=== PATIENT | female | born 2000 | race Two or more races ===

== ENCOUNTER 2022-05-30 08:49 | Emergency (ER) | payer BC ==
[~2022-05-30] VITALS: Ht 177.8 cm; Wt 59.0 kg
--- NOTE | 2022-05-30 09:10 | NUR ---
BIB FRIEND w/ C/O ABDOMINAL PAIN AND VOMITING STARTED AT 0400 TODAY, PT RATES PAIN AT P/S 04/26. PT A/O X4, AMBULATORY. TO ER BED 9.
--- NOTE | 2022-05-30 09:20 | NUR ---
URINE COLLECTED AND SENT
--- NOTE | 2022-05-30 09:26 | NUR ---
PT TAKEN TO CT VIA [facility]
[2022-05-30] MEDS ORDERED: IV NS 0.9% 500 ML BAG IV ONE (09:30)
[2022-05-30] MEDS ORDERED: ONDANSETRON HCL/PF 4 MG/2 ML VIAL ONE (09:42)
[2022-05-30 09:53] LABS: BASOPHILS % (AUTO) 0.1 % (0.0-2.0); EOSINOPHILS % (AUTO) 0.3 % (0.0-6.0); HEMATOCRIT 40 % (33-45); HEMOGLOBIN 13.9 g/dL (11.5-14.8); LYMPHOCYTES # (AUTO) 1.1 K/uL (0.8-4.8); LYMPHOCYTES % (AUTO) 6.7 % (20.0-44.0); MEAN CORPUSCULAR HGB CONC 35 g/dl (31.0-36.0); MEAN CORPUSCULAR VOLUME 88 fL (82-100); MONOCYTES % (AUTO) 6.1 % (2.0-12.0); NEUTROPHILS # (AUTO) 13.7 K/uL (1.8-8.9); NEUTROPHILS % (AUTO) 86.8 % (43.0-81.0); PLATELET COUNT (AUTO) 307 K/uL (150-450); RED BLOOD CELL COUNT(AUTO) 4.59 MIL/uL (4.0-5.2); WHITE BLOOD COUNT (AUTO) 15.7 K/uL (4.3-11.0)
[2022-05-30] MEDS ORDERED: ONDANSETRON HCL/PF 4 MG/2 ML VIAL IV ONE (10:00)
[2022-05-30 10:19] LABS: CREATININE 0.8 mg/dL (0.6-1.3); POTASSIUM 3.4 mmol/L (3.5-5.1)
[2022-05-30 10:27] LABS: ALBUMIN 4.2 g/dL (3.4-5.0); BILIRUBIN,DIRECT 0.1 mg/dL (0.0-0.2); BILIRUBIN,TOTAL 0.5 mg/dL (0.2-1.0); TOTAL PROTEIN, SERUM 7.6 g/dL (6.4-8.2)
[2022-05-30 10:53] LABS: BILIRUBIN,URINE NEGATIVE (NEGATIVE); COLOR,URINE YELLOW (YELLOW); LEUKOCYTE ESTERASE ,URINE NEGATIVE (NEGATIVE); NITRITE, URINE NEGATIVE (NEGATIVE); PH,URINE 5.5 (5.0-8.0); PROTEIN,URINE TRACE mg/dl (NEGATIVE); UGLUCOSE NEGATIVE (NEGATIVE); UROBILINOGEN,URINE 0.2 EU/dL (0.2)
[2022-05-30 11:16] LABS: BACTERIA,URINE Few /HPF (None Seen); RBC,URINE NONE SEEN /HPF (0-2); WBC,URINE NONE SEEN /HPF (0-3)
[2022-05-30] MEDS ORDERED: ONDA4TAB5 PO (11:40)
--- NOTE | 2022-05-30 11:56 | NUR ---
IV removed. Catheter intact and site benign. Pressure and 4x4 applied to site. No bleeding noted.Patient discharged to home in stable condition. Written and verbal after care instructions given. Patient verbalizes understanding of instruction.
[2022-05-30 11:57] VITALS: BP 126/66
== END 2022-05-30 11:57 | disposition home or self-care (01) ==
LOC: ER 08:59
DX: R11.2 Nausea with vomiting, unspecified (principal); R10.30 Lower abdominal pain, unspecified
CPT/HCPCS: 99284; 74176; 96374; 85025; 80048; 87086; 83690; 80076; 84703; 81001; 36415; J2405; J7040